=== PATIENT | male | born 1995 | race Caucasian/White ===

== ENCOUNTER 2019-05-17 06:05 | Emergency (ER) | payer OTHER ==
[2019-05-17 06:14] VITALS: BP 145/80
[2019-05-17] MEDS ORDERED: PROPARACAINE 0.5% OPHTH DROPS 15 ML RIGHTEYE STA (06:25)
--- NOTE | 2019-05-17 06:36 | ED Physician Documentation ---
PD HPI OPHTHO - Stated complaint Stated Complaint: R EYE PX - Chief complaint Chief Complaint: Heent - History obtained from History obtained from: Patient - History of Present Illness Timing - onset: Today Timing - duration: Hours Timing - details: Gradual onset, Still present Location: Right Quality / character: Itching, Burning, Sharp Associated symptoms: Redness, Tearing, Matting. No: FB sensation Similar symptoms before: Has not had sx before Recently seen: Not recently seen - Additional information Additional information: 23-year-old male is developed some redness and matting to his right eye. He has not had this happen to him previously he states that this is become worse and he has some itching to his eye. Review of Systems Constitutional: denies: Fever Eyes: reports: Discharge, Irritation. denies: Decreased vision Ears: denies: Ear pain Nose: denies: Rhinorrhea / runny nose, Congestion Throat: denies: Sore throat Respiratory: denies: Cough PD PAST MEDICAL HISTORY - Past Medical History Past Medical History: No Cardiovascular: None Respiratory: None Neuro: None Endocrine/Autoimmune: None GI: None : None HEENT: None Psych: None Musculoskeletal: None, Chronic back pain Derm: None - Past Surgical History Past Surgical History: Yes General: Other - Present Medications Home Medications: Ambulatory Orders Medication Instructions Recorded Confirmed Neomycin/Poly/Dex Ophth Drops 1 drops RIGHTEYE QID #1 bottle 05/17/19 [Maxitrol Ophth Drops] - Allergies Allergies/Adverse Reactions: Allergies Allergy/AdvReac Type Severity Reaction Status Date / Time Sulfa (Sulfonamide AdvReac Unknown Verified 05/17/19 06:14 Antibiotics) - Social History Does the pt smoke?: No Smoking Status: Never smoker Does the pt drink ETOH?: No Does the pt have substance abuse?: No - Immunizations Immunizations are current?: Yes - POLST Patient has POLST: No PD ED PE NORMAL - Vitals Vital signs reviewed: Yes (hypertensive ) - General General: Alert and oriented X 3, No acute distress, Well developed/nourished - HEENT HEENT: Atraumatic, PERRL, EOMI, Other (The right conjunctiva is inflamed medially inferiorly without cobblestoning. There is no fluoroscine uptake in the cornea. There is no FB in the conjunctiva and there is symetry to the iris and no hyphema or evidnece of trauma to the globe.) - Neck Neck: Supple, no meningeal sign, No bony TTP - Respiratory Respiratory: No respiratory distress - Derm Derm: Normal color, Warm and dry, No rash - Extremities Extremities: No deformity, No edema - Neuro Neuro: Alert and oriented X 3, manager talent acquisition 2-12 intact, No motor deficit, No sensory deficit, Normal speech Eye Opening: Spontaneous Motor: Obeys Commands Verbal: Oriented GCS Score: 15 - Psych Psych: Normal mood, Normal affect Results - Vitals Vitals: Vital Signs - 24 hr 05/17/19 06:12 Temperature 36.6 C Heart Rate 95 Respiratory 16 Rate Blood Pressure 145/80 H O2 Saturation 99 Oxygen O2 Source Room air PD MEDICAL DECISION MAKING - ED course Complexity details: reviewed old records, considered differential, d/w patient ED course: 23-year-old male with a itchy red watery eye on the right appears to have a conjunctivitis there is no evidence of forcing uptake on the cornea to suggest herpes keratitis. We will place him on some Maxitrol ophthalmic drops. Departure - Departure Disposition: 01 Home, Self Care Clinical Impression: Conjunctivitis Qualifiers: Conjunctivitis type: acute Acute conjunctivitis type: bacterial Laterality: right Qualified Code(s): H10.31 - Unspecified acute conjunctivitis, right eye Condition: Stable Instructions: ED Conjunctivitis Bacterial Follow-Up: SUSAN Light [Provider Group] Prescriptions: Neomycin/Poly/Dex Ophth Drops [Maxitrol Ophth Drops] 1 drops RIGHTEYE QID #1 bottle Forms: Activity restrictions
== END 2019-05-17 06:42 | disposition home or self-care (01) ==
LOC: ED 06:05
DX: H10.31 Unspecified acute conjunctivitis, right eye (principal)
CPT/HCPCS: 99282; 99284; J3490

== ENCOUNTER 2019-06-02 23:25 | Emergency (ER) | payer OTHER ==
--- NOTE | 2019-06-02 23:59 | ED Physician Documentation ---
PD HPI HEADACHE - Stated complaint Stated Complaint: CARRERA/EYE PX - Chief complaint Chief Complaint: Neuro - History obtained from History obtained from: Patient - History of Present Illness Timing - onset: How many hours ago (2) Timing - onset during: Rest Timing - duration: Hours Timing - details: Abrupt onset Pain level now: 5 Worst headache ever?: No: Worst headache ever? (when I ask him this, he is specific and confident that he has had significantly worse headaches than this) Location: Front, Right, Left Quality: Aching Associated symptoms: Other (right eye redness). No: Fever, Stiff neck, Nausea, Vomiting, Weakness, Numbness, Syncope, Seizure, Eye pain, Vision changes Improved by: Nothing Worsened by: Other (nothing) Similar symptoms before: Has not had sx before Recently seen: Not recently seen - Additional information Additional information: sudden onset bifrontal headache 2 hours ago while at home in bed. He says he has had worse headaches before and the headache is not his chief concern per se; he says that after the headache developed, he felt "something pop" in right eye. He looked in the mirror and noted his right eye was red. He went to local convenience store to buy some aleve, and upon returning to [facility], a guard was letting him in when the guard commented on how red patient's right eye was. Patient became worried that the headache and red eye might be connected and concerning. He denies right eye pain, denies vision changes. He was recently seen in this ED for conjunctivitis, but these are different symptoms. He does not wear corrective lenses or glasses Review of Systems Constitutional: denies: Fever, Chills, Sweats Eyes: reports: Irritation (mild right eye), Other (right eye redness). denies: Loss of vision, Decreased vision, Photophobia, Discharge GI: denies: Nausea, Vomiting Musculoskeletal: denies: Neck pain Neurologic: reports: Headache. denies: Generalized weakness, Focal weakness, Numbness, Head injury, LOC PD PAST MEDICAL HISTORY - Past Medical History Past Medical History: No Cardiovascular: None Respiratory: None Neuro: None Endocrine/Autoimmune: None GI: None : None HEENT: None Psych: None Musculoskeletal: None, Chronic back pain Derm: None - Past Surgical History Past Surgical History: Yes General: Other - Present Medications Home Medications: Ambulatory Orders Medication Instructions Recorded Confirmed No Known Home Medications 06/02/19 06/02/19 - Allergies Allergies/Adverse Reactions: Allergies Allergy/AdvReac Type Severity Reaction Status Date / Time Sulfa (Sulfonamide AdvReac Unknown Verified 06/02/19 23:31 Antibiotics) - Social History Does the pt smoke?: No Smoking Status: Never smoker Does the pt drink ETOH?: No Does the pt have substance abuse?: No - Immunizations Immunizations are current?: Yes - POLST Patient has POLST: No PD ED PE NORMAL - Vitals Vital signs reviewed: Yes - General General: Alert and oriented X 3, No acute distress, Well developed/nourished - HEENT HEENT: PERRL, EOMI, Moist mucous membranes, Pharynx benign - Neck Neck: Supple, no meningeal sign - Cardiac Cardiac: RRR, No murmur - Respiratory Respiratory: No respiratory distress, Clear bilaterally - Neuro Neuro: Alert and oriented X 3, qa automation developer 2-12 intact, No motor deficit, No sensory deficit, Normal speech Eye Opening: Spontaneous Motor: Obeys Commands Verbal: Oriented GCS Score: 15 PD ED PE EXPANDED - HEENT HEENT Visual: 1 - deformity (shallow fluorescein uptake) - Eyes Eyes: No eyelid FB (everted), Injected conj/sclera (mild/moderate right eye injection), Anterior chambers clear Results - Vitals Vitals: Vital Signs - 24 hr 06/02/19 06/03/19 23:28 00:48 Temperature 36.7 C Heart Rate 80 83 Respiratory 18 14 Rate Blood Pressure 146/91 H 125/82 H O2 Saturation 99 97 Oxygen O2 Source Room air PD MEDICAL DECISION MAKING - ED course Complexity details: reviewed old records, considered differential, d/w patient Departure - Departure Disposition: 01 Home, Self Care Clinical Impression: Corneal abrasion, right Condition: Good Instructions: ED Eye Injury Corneal Abrasion, ED Cephalgia Unspecified Follow-Up: SUSAN Light [Provider Group] - Within 3 Days Comments: Use the antibiotic drops as follows: 2 drops in right eye three times per day for 5 days. Discharge Date/Time: 06/03/19 00:51
[2019-06-03] MEDS ORDERED: PROPARACAINE 0.5% OPHTH DROPS 15 ML RIGHTEYE STA (00:12)
[2019-06-03] MEDS ORDERED: POLYMYXIN B/TRIMETH OPHTH DROPS RIGHTEYE STA (00:37)
[2019-06-03 00:48] VITALS: BP 125/82
== END 2019-06-03 00:51 | disposition home or self-care (01) ==
LOC: ED 23:25
DX: S05.01XA Injury of conjunctiva and corneal abrasion without foreign body, right eye, initial encounter (principal); X58.XXXA Exposure to other specified factors, initial encounter; R51 Headache
CPT/HCPCS: 99282; 99284; A9270; J3490

== ENCOUNTER 2019-07-20 14:45 | Emergency (ER) | payer OTHER ==
[2019-07-20 15:04] VITALS: BP 145/94
[2019-07-20] MEDS ORDERED: ONDANSETRON ODT 4 MG TABLET TL STA (15:45)
--- NOTE | 2019-07-20 16:19 | ED Physician Documentation ---
PD HPI NVD - Stated complaint Stated Complaint: N/V - Chief complaint Chief Complaint: Abd Pain - History obtained from History obtained from: Patient - History of Present Illness Timing - onset: Enter time (0600), Today Timing - duration: Hours Timing - details: Abrupt onset, Now resolved Associated symptoms: Abdominal pain Contributing factors: Bad food Improved by: Vomiting Similar symptoms before: Has not had sx before Recently seen: Not recently seen - Additonal information Additional information: Previously well 24-year-old male ate [employer] last night between the hours of 11 and midnight while playing video games and this morning at about 6 AM woke with vomiting. Vomited 3 times and he has come to the hospital, he is taken some Zofran and feels improved. He feels that he will be able to orally hydrate. He feels tired. Review of Systems Constitutional: denies: Fever Eyes: denies: Decreased vision Ears: denies: Ear pain Nose: denies: Congestion Throat: denies: Sore throat Cardiac: denies: Chest pain / pressure, Palpitations Respiratory: denies: Dyspnea, Cough GI: reports: Abdominal Pain, Nausea, Vomiting : denies: Dysuria, Frequency Skin: denies: Rash PD PAST MEDICAL HISTORY - Past Medical History Cardiovascular: None Respiratory: None Neuro: None Endocrine/Autoimmune: None GI: None : None HEENT: None Psych: None Musculoskeletal: None, Chronic back pain Derm: None - Past Surgical History Past Surgical History: Yes General: Other - Present Medications Home Medications: Ambulatory Orders Medication Instructions Recorded Confirmed Ondansetron Odt [Zofran] 4 mg TL Q6H PRN #10 tablet 07/20/19 - Allergies Allergies/Adverse Reactions: Allergies Allergy/AdvReac Type Severity Reaction Status Date / Time Sulfa (Sulfonamide AdvReac Unknown Verified 07/20/19 15:04 Antibiotics) - Social History Does the pt smoke?: No Smoking Status: Never smoker Does the pt drink ETOH?: No Does the pt have substance abuse?: No - Immunizations Immunizations are current?: Yes - POLST Patient has POLST: No PD ED PE NORMAL - Vitals Vital signs reviewed: Yes (tachy and hypertensive ) - General General: Alert and oriented X 3, No acute distress, Well developed/nourished, Other (pale ) - HEENT HEENT: Atraumatic, PERRL, EOMI, Ears normal - Cardiac Cardiac: No murmur, Other (tachy to 90 on my exam) - Respiratory Respiratory: No respiratory distress, Clear bilaterally - Abdomen Abdomen: Normal bowel sounds, Soft, Non tender, Non distended, No organomegaly - Back Back: No CVA TTP, No spinal TTP - Derm Derm: Normal color, Warm and dry, No rash - Extremities Extremities: No deformity, No edema, No calf tenderness / cord - Neuro Neuro: Alert and oriented X 3, manager data warehousing 2-12 intact, No motor deficit, No sensory deficit, Normal speech Eye Opening: Spontaneous Motor: Obeys Commands Verbal: Oriented GCS Score: 15 - Psych Psych: Normal mood, Normal affect Results - Vitals Vitals: Vital Signs - 24 hr 07/20/19 15:02 Temperature 37.0 C Heart Rate 112 H Respiratory 18 Rate Blood Pressure 145/94 H O2 Saturation 99 Oxygen O2 Source Room air PD MEDICAL DECISION MAKING - ED course Complexity details: reviewed old records, considered differential, d/w patient ED course: 24-year-old male with what appears to be acute food poisoning has improvement with time and Zofran. We will send him home with a prescription for Zofran and a note for work for 1 day. Departure - Departure Disposition: Home, Self Care Clinical Impression: Food poisoning Condition: Stable Instructions: ED Gastroenteritis Vs Food Poison Follow-Up: SUSAN Light [Provider Group] Prescriptions: Ondansetron Odt [Zofran] 4 mg TL Q6H PRN #10 tablet PRN Reason: Nausea / Vomiting Forms: Activity restrictions
== END 2019-07-20 16:38 | disposition home or self-care (01) ==
LOC: ED 14:45
DX: A05.9 Bacterial foodborne intoxication, unspecified (principal)
CPT/HCPCS: 99282; 99284; Q0162